=== PATIENT | female | born 1980 | race Caucasian/White ===

== ENCOUNTER 2022-05-21 10:00 | Outpatient (CLI) | payer BC, SELFPAY ==
[2022-05-21 11:09] LABS: Kit Draw Collected
== END 2022-05-21 10:01 | disposition home or self-care (01) ==
LOC: ANHGOSHLAB 10:05
PROVIDERS: PCP Family Medicine; Visit Provider Family Medicine
DX: Z00.00 Encounter for general adult medical examination without abnormal findings (principal); Z53.8 Procedure and treatment not carried out for other reasons
CPT/HCPCS: 99199; 36415

== ENCOUNTER → 2022-09-25 14:50 | Outpatient (CLI) | payer BC, SELFPAY ==
--- NOTE | ~2022-09-25 | MM_ITS ---
EXAMINATION: MM screening [facility] BI w luz HISTORY: Screening mammogram TECHNIQUE: Craniocaudal and mediolateral oblique 3-D tomosynthesis images were obtained and synthetic 2-D images were generated. CAD analysis was submitted and interpreted. COMPARISON: None, baseline BREAST PARENCHYMAL COMPOSITION: There are scattered areas of fibroglandular density. FINDINGS: RIGHT BREAST: There are small low density masses in the middle third of the slightly upper breast 3.5 and 5 cm from the nipple. LEFT BREAST: There is a mass with calcification and middle third of the lower-outer breast 5.5 cm fro m the nipple. IMPRESSION: 1. Bilateral breast findings as above. 2. Additional mammographic views and possible breast ultrasound are recommended. BI-RADS Category 0: Incomplete: Needs additional imaging evaluation. Reviewed, dictated and finalized at location A. NT DEVELOPMENT ANALYST IMPRESSION: 1. Bilateral breast findings as above. 2. Additional mammographic views and possible breast ultrasound are recommended . BI-RADS Category 0: Incomplete: Needs additional imaging evaluation.
== END ==
PROVIDERS: PCP Family Medicine; Visit Provider Family Medicine
DX: Z12.31 Encounter for screening mammogram for malignant neoplasm of breast (principal); R92.8 Other abnormal and inconclusive findings on diagnostic imaging of breast
CPT/HCPCS: 77063; 77067

== ENCOUNTER 2022-10-14 10:56 | Outpatient (CLI) | payer BC, SELFPAY ==
--- NOTE | ~2022-10-14 | MMUS_ITS ---
EXAMINATION: MM diagnostic mirna BI w luz, US breast LT limited, US breast RT complete HISTORY: Bilateral mammographic abnormalities on 09/25/2022 screening mammogram TECHNIQUE: Additional 3-D tomosynthesis images of both breasts were performed and synthetic 2-D image s were generated. CAD analysis was submitted and interpreted. High resolution complete right breast u ltrasound examination including all 4 quadrants and subareolar area and lower-outer quadrant left oracio ast ultrasound examination was performed. COMPARISON: 09/25/2022 bilateral screening mammogram FINDINGS: MAMMOGRAPHIC FINDINGS: Right breast: Circumscribed opacities in the posterior upper outer right breast are likely benign lymph nodes. Anterior mid to upper inner right circumscribed 5 mm breast opacity. Left breast: 9 mm circumscribed opacity with some amorphous calcifications, anterior lower outer left breast, like ly a partially calcified fibroadenoma. Approximately 6 mm opacity with benign appearing calcification, posterior outer mid left breast. ULTRASOUND: Right breast: No suspicious mass or shadowing is detected. Left breast: 5:00 4 cm from nipple: Irregular hypoechoic solid lesion measuring up to 11 x 11.6 x 8.8 mm dimension is noted, with some posterior shadowing, with some internal calcification. Due to the irregular shayan ins and posterior shadowing, ultrasound-guided biopsy is recommended. IMPRESSION: 1. Irregular posterior shadowing left breast 5:00 up to 11.6 mm lesion 2. Ultrasound-guided biopsy of left breast 5:00 lesion is recommended BI-RADS category 4, suspicious findings. Dr. Venegas telephoned the report and ultrasound guided biopsy on 10/14/2022 at 1251 hours to Kassie Avelar Environmental Services Assistant. Reviewed, dictated and finalized at location B. IMPRESSION: 1. Irregular posterior shadowing left breast 5:00 up to 11.6 mm lesion 2. Ultrasound-guided biopsy of left breast 5:00 lesion is recommended BI-RADS category 4, suspicious findings. Dr. Venegas telephoned the report and ultrasound guided biopsy on 10/14/2022 at 125 1 hours to Rosio Test Skein Winder. IMPRESSION: 1. Irregular posterior shadowing left breast 5:00 up to 11.6 mm lesion 2. Ultrasound-guided biopsy of left breast 5:00 lesion is recommended BI-RADS category 4, suspicious findings. Dr. Venegas telephoned the report and ultrasound guided biopsy on 10/14/2022 at 125 1 hours to Rosio Test Skein Winder. IMPRESSION: 1. Irregular posterior shadowing left breast 5:00 up to 11.6 mm lesion 2. Ultrasound-guided biopsy of left breast 5:00 lesion is recommended BI-RADS category 4, suspicious findings. Dr. Venegas telephoned the report and ultrasound guided biopsy on 10/14/2022 at 125 1 hours to Carol AvelarTest Skein Winder.
== END 2022-10-14 10:57 | disposition home or self-care (01) ==
PROVIDERS: PCP Family Medicine; Visit Provider Family Medicine
DX: R92.8 Other abnormal and inconclusive findings on diagnostic imaging of breast (principal)
CPT/HCPCS: 76641; 76642; 77062; 77066; G0279

== ENCOUNTER 2022-10-20 09:34 | Outpatient (CLI) | payer BC, SELFPAY ==
--- NOTE | ~2022-10-20 | MMUS_ITS ---
EXAMINATION: US GUIDED NEEDLE BIOPSY DATE: 10/20/2022 11:48 CDT INDICATION: Irregular posteriorly shadowing left 5:00 breast up to 11.6 mm mass TECHNIQUE AND FINDINGS: The risks and potential benefits of the procedure were discussed with the patient, and written inform ed consent was obtained. Timeout procedure was performed. After sterile preparation of the left breas t, 1% lidocaine was utilized for local anesthesia. A 14G spring-loaded biopsy gun needle was advanced to the edge of the region of interest from a later al approach utilizing sonographic guidance. A total of three tissue core samples were obtained throu gh the lesion. An Inrad tissue marker clip was then placed at the biopsy site. Hemostasis was achiev ed. A sterile bandage was applied. The patient tolerated procedure well and there was no evidence of immediate complication. The patien t was given verbal instructions prior to departing from the department. A two view mammogram was perf ormed to document tissue marker clip placement. The tissue samples were submitted to surgical patholo gy for histologic analysis. IMPRESSION: 1. Successful ultrasound guided biopsy of left 5:00 breast mass with biopsy marker placement. Please refer to pathology report for histologic analysis. Reviewed, dictated and finalized at Location A. Reviewed, dictated and finalized at location A. IMPRESSION: 1. Successful ultrasound guided biopsy of left 5:00 breast mass with biopsy ma rker placement. Please refer to pathology report for histologic analysis.
== END 2022-10-20 09:35 | disposition home or self-care (01) ==
PROVIDERS: PCP Family Medicine; Visit Provider Nurse Practitioner Family
DX: R92.8 Other abnormal and inconclusive findings on diagnostic imaging of breast (principal)
CPT/HCPCS: 19083; 88305; A4648

== ENCOUNTER 2024-01-26 14:52 | Outpatient (CLI) | payer BC, SELFPAY ==
--- NOTE | ~2024-01-26 | MM_ITS ---
EXAMINATION: MM screening [facility] BI w luz HISTORY: Screening TECHNIQUE: Craniocaudal and mediolateral oblique 3-D tomosynthesis images were obtained and synthetic 2-D images were generated. CAD analysis was submitted and interpreted. COMPARISON: Comparison to multiple prior studies sequentially, with oldest reviewed study dated 09/25. BREAST PARENCHYMAL COMPOSITION: Not dense: There are scattered areas of fibroglandular density. FINDINGS: Bilateral breast masses are stable. No new masses, calcifications or architectural distorti on. There is tissue markers and a mass in the lower outer quadrant of the left breast, previously bio psy-proven benign. IMPRESSION: 1. Stable bilateral mammogram without evidence for malignancy. 2. Routine yearly screening mammogram and regular clinical breast examination are recommended. BI-RADS Category 2: Benign finding(s). Reviewed, dictated and finalized at location B. IMPRESSION: 1. Stable bilateral mammogram without evidence for malignancy. 2. Routine yearly screening mammogram and regular clinical breast examination a re recommended. BI-RADS Category 2: Benign finding(s).
== END 2024-01-26 14:53 ==
LOC: MICIMG 14:53
PROVIDERS: PCP Family Medicine; Visit Provider Family Medicine
DX: Z12.31 Encounter for screening mammogram for malignant neoplasm of breast (principal)
CPT/HCPCS: 77063; 77067

== ENCOUNTER 2025-01-31 14:41 | Outpatient (CLI) | payer BC, SELFPAY ==
--- NOTE | ~2025-01-31 | MM_ITS ---
EXAMINATION: MM screening mirna BI w luz HISTORY: Screening TECHNIQUE: Craniocaudal and mediolateral oblique 3-D tomosynthesis images were obtained and synthetic 2-D images were generated. CAD analysis was submitted and interpreted. COMPARISON: Comparison to multiple prior studies sequentially, with oldest reviewed study dated 09/25. BREAST PARENCHYMAL COMPOSITION: Not dense: There are scattered areas of fibroglandular density. FINDINGS: Stable biopsy-proven benign mass in the left breast. There is no evidence of suspicious mas s, calcification, or architectural distortion to suggest malignancy in either breast. There has been no suspicious interval change. IMPRESSION: 1. No mammographic evidence of malignancy. 2. Recommend routine screening mammography in one year. BI-RADS Category 2: Benign finding(s). Reviewed, dictated and finalized at location B.
== END 2025-01-31 14:42 | disposition home or self-care (01) ==
LOC: MICIMG 14:42
PROVIDERS: PCP Family Medicine; Visit Provider Family Medicine
DX: Z12.31 Encounter for screening mammogram for malignant neoplasm of breast (principal)
CPT/HCPCS: 77063; 77067